=== PATIENT | male | born 1970 | race African-American/Black ===

== ENCOUNTER 2024-03-21 22:01 | Inpatient (IN) | payer OTHER ==
[2024-03-21] MEDS ORDERED: ONDANSETRON *ODT* 4 MG TABLET SL PRN (22:49)
[2024-03-21] MEDS ORDERED: BENZONATATE 200 MG CAPSULE PO PRN (22:49)
[2024-03-21] MEDS ORDERED: IBUPROFEN 600 MG TABLET (FP) PO PRN (22:49)
[2024-03-21] MEDS ORDERED: IBUPROFEN 400 MG TABLET (FP) PO PRN (22:49)
[2024-03-21] MEDS ORDERED: MAG HYDROX/AL HYDROX/SIMETH 30 ML UNIT-DOSE CUP PO PRN (22:49)
[2024-03-21] MEDS ORDERED: ACETAMINOPHEN 325 MG TABLET (FP) PO PRN (22:49)
[2024-03-21] MEDS ORDERED: BISMUTH SUBSALICYLATE 524 MG/30 ML PO PRN (22:49)
[2024-03-21] MEDS ORDERED: POLYETHYLENE GLYCOL (HEALTHYLAX) 3350 17 GM PACKET PO PRN (22:49)
[2024-03-21] MEDS ORDERED: guaiFENesin 600 MG TABLET.ER (FP) PO PRN (22:49)
[2024-03-21] MEDS ORDERED: NICOTINE POLACRILEX 4 MG GUM BUC PRN (22:49)
[2024-03-21] MEDS ORDERED: LOPERAMIDE HCL 2 MG CAPSULE PO PRN (22:49)
[2024-03-21] MEDS ORDERED: DICYCLOMINE HCL 10 MG CAPSULE PO PRN (22:49)
[2024-03-21] MEDS ORDERED: MAGNESIUM HYDROX 2400MG/30ML ORAL SUSPENSION 30 ML CUP PO PRN (22:49)
[2024-03-21] MEDS ORDERED: NALOXONE (NARCAN) HCL 4 MG/0.1 ML SPRAY NS PRN (22:49)
[2024-03-21] MEDS ORDERED: BENZOCAINE/MENTHOL (CHLORASEPTIC ) LOZENGE MM PRN (22:49)
[2024-03-22] MEDS: NICOTINE 14 MG/24 HOURS TOPICAL PATCH TD SCH (10:29)
[2024-03-22] MEDS: PRENATAL VITAMINS W/ FOLIC ACID TABLET (FP) PO SCH (10:29)
[2024-03-22] MEDS: methaDONE HCL 10 MG TABLET PO ONE (11:06)
[2024-03-22] MEDS: hydrOXYzine PAMOATE 25 MG CAPSULE (FP) PO PRN (11:07)
[2024-03-22] MEDS: METHOCARBAMOL 500 MG TABLET PO PRN (11:07)
[2024-03-22] MEDS ORDERED: methaDONE HCL 10 MG TABLET PO PRN (12:25)
[2024-03-22] MEDS: INSULIN ASPART SLIDING SCALE (NOVOLOG) 1 VIAL SQ SCH (17:12)
[2024-03-22] MEDS: metFORMIN HCL 500 MG TABLET (FP) PO SCH (17:15)
[2024-03-22] MEDS: MELATONIN 5 MG TABLETS PO SCH (22:42)
[2024-03-22] MEDS: THIAMINE 100 MG TABLET PO SCH (22:43)
[2024-03-23] MEDS ORDERED: metFORMIN HCL 500 MG TABLET (FP) PO SCH (07:00)
[2024-03-23] MEDS: methaDONE 40 MG, methaDONE 10 MG PO ONE (10:18)
[2024-03-23] MEDS ORDERED: INSULIN (NOVOLOG) ASPART 100 UNITS/ML 10ML VIAL ONE ×2 (11:54→17:29)
[2024-03-24] MEDS ORDERED: cloNIDine HCL 0.1 MG TABLET PO PRN
[2024-03-24] MEDS ORDERED: INSULIN (NOVOLOG) ASPART 100 UNITS/ML 10ML VIAL ONE (05:15)
[2024-03-24] MEDS: methaDONE 40 MG, methaDONE 20 MG PO ONE (09:39)
[2024-03-25] MEDS ORDERED: INSULIN (NOVOLOG) ASPART 100 UNITS/ML 10ML VIAL ONE (05:42)
[2024-03-25] MEDS: methaDONE 40 MG, methaDONE 30 MG PO ONE (09:43)
[2024-03-25 11:09] LABS: POTASSIUM 4.8 mmol/L (3.5-5.1)
[2024-03-25 11:12] LABS: HEMATOCRIT 32.7 % (35.4-49); HEMOGLOBIN 10.6 GM/dL (11.7-16.9); MCH 27.2 pg (25.7-33.7); MCHC 32.4 g/dl (32.0-35.9); MEAN CELL VOLUME 83.8 fl (80-96); MEAN PLT VOLUME 7.5 fl (7.5-11.1); PLATELET COUNT 931 10^3/uL (134-434); RDW 17.7 % (11.9-15.9); WHITE BLOOD COUNT 11.7 K/mm3 (4.0-10.0)
[2024-03-25 11:24] LABS: CALCIUM 9.1 mg/dL (8.5-10.1)
[2024-03-25 11:25] LABS: ALBUMIN 2.6 g/dl (3.4-5.0)
[2024-03-25 11:28] LABS: CREATININE 0.7 mg/dL (0.55-1.3)
[2024-03-25 11:29] LABS: BILIRUBIN,TOTAL 0.3 mg/dL (0.2-1)
[2024-03-25 11:30] LABS: TOT PROT 6.2 g/dl (6.4-8.2)
[2024-03-26] MEDS: methaDONE HCL 40 MG DISPERSABLE TABLET PO ONE (09:50)
[2024-03-27 07:00] VITALS: RESP 16
[2024-03-27] MEDS: NALOXONE (NYS OPIOID OVERDOSE PROGRAM) 4 MG/0.1 ML SPRAY NS SCH (08:00)
[2024-03-27 09:23] VITALS: BP 106/60; PULSE 86; TEMP 97.7
[2024-03-27] MEDS: methaDONE 80 MG, methaDONE 10 MG PO ONE (10:29)
== END 2024-03-27 11:01 | disposition home or self-care (01) | DRG 773 ==
LOC: YASAS 22:01 → Y6N 22:54
PROVIDERS: ADMIT Allergy & Immunology; ATTEND Surgery
PROC: HZ2ZZZZ Detoxification Services for Substance Abuse Treatment (ICD-10-PCS; principal; 2024-03-21)
DX: F11.23 Opioid dependence with withdrawal (principal); F14.20 Cocaine dependence, uncomplicated; F17.210 Nicotine dependence, cigarettes, uncomplicated; F19.282 Other psychoactive substance dependence with psychoactive substance-induced sleep disorder; F19.24 Other psychoactive substance dependence with psychoactive substance-induced mood disorder; E11.65 Type 2 diabetes mellitus with hyperglycemia; Z79.84 Long term (current) use of oral hypoglycemic drugs; Z59.00 Homelessness unspecified
CPT/HCPCS: 36415; 80053; 82962; 83036; 85027; 86780; 93005; 93010